=== PATIENT | female | born 1965 ===

== ENCOUNTER 2016-08-20 10:59 | Emergency (ER) | payer MEDICARE ==
[2016-08-20 11:09] VITALS: BP 143/87; PULSE 65; TEMP 97; O2SAT 99
[2016-08-20 11:10] VITALS: BMI 25.0
--- NOTE | 2016-08-20 11:39 | ED PDOC ---
HPI: General Adult Time Seen by Provider: 08/20/16 11:38 Chief Complaint (Nursing): Cough, Cold, Congestion Chief Complaint (Provider): cough History Per: Patient Additional Complaint(s): Patient states she has had cough, headache and body aches for the past 3 days with no known fever. Patient denies any chest pain or SOB. She has not taken any meds for relief of symptoms. Patient is tolerating liquids and solids, she denies any recent travel or known sick contacts. Patient also has headache and slight abdominal pain. No nausea, vomiting, diarrhea or constipation, no dysuria or hematuria. Patient states she has history of frequent headaches. Past Medical History Reviewed: Historical Data, Nursing Documentation, Vital Signs Vital Signs: Last Vital Signs Temp 97 F L 08/20/16 11:08 Pulse 65 08/20/16 11:08 Resp BP 143/87 08/20/16 11:08 Pulse Ox 99 08/20/16 12:39 - Medical History PMH: Anxiety, Arthritis, Back Problems (Osteomyelitis T9/T10), Depression, Diabetes (type II), Gastritis, HTN, Hypercholesterolemia, Hypothyroidism, Malignancy (Thyroid) Other PMH: hard of hearing - Surgical History Surgical History: Endoscopy Other surgeries: thyroidectomy - Family History Family History: States: No Known Family Hx - Living Arrangements Living Arrangements: With Family - Social History Current smoker - smoking cessation education provided: No Alcohol: None Drugs: Denies - Immunization History Hx Tetanus Toxoid Vaccination: No Hx Influenza Vaccination: Yes Hx Pneumococcal Vaccination: No - Home Medications Home Medications: Ambulatory Orders Medication Instructions Recorded Levothyroxine [Synthroid] 125 mcg PO DAILY@0630 09/26/14 Calcitriol [Rocaltrol] 0.5 mcg PO DAILY 09/04/15 Simvastatin [Zocor] 20 mg PO HS 09/04/15 metFORMIN [glucOPHAGE] 500 mg PO BID 09/04/15 Ibuprofen [Motrin Tab] 600 mg PO Q6 #20 tab 12/19/15 Pantoprazole [Protonix EC Tab] 40 mg PO BID #0 ect 02/11/16 Ranitidine HCl 150 mg PO HS #30 tablet 02/11/16 Calcium Carbonate/Vitamin D3 1 tab PO DAILY 08/03/16 [Calcium 600 + Vit D Tablet] Ciprofloxacin [Cipro] 500 mg PO BID 08/03/16 Lisinopril 2.5 mg PO DAILY 08/03/16 Oxycodone HCl/Acetaminophen 1 tab PO Q6 PRN 08/03/16 [Oxycodone-Acetaminophen 5-325] Azithromycin [Zithromax] 250 mg PO DAILY #6 tab 08/20/16 Benzonatate 200 mg PO TID PRN #20 capsule 08/20/16 Ibuprofen [Motrin] 600 mg PO Q6 PRN #15 tab 08/20/16 - Allergies Allergies/Adverse Reactions: Allergies Allergy/AdvReac Type Severity Reaction Status Date / Time Penicillins Allergy RASH Verified 08/20/16 11:47 Review of Systems ROS Statement: Except As Marked, All Systems Reviewed And Found Negative Constitutional: Negative for: Fever ENT: Positive for: Throat Pain Cardiovascular: Negative for: Chest Pain Respiratory: Positive for: Cough Gastrointestinal: Negative for: Vomiting Neurological: Positive for: Headache Physical Exam - Reviewed Nursing Documentation Reviewed: Yes Vital Signs Reviewed: Yes - Physical Exam Appears: Positive for: Well, Non-toxic, No Acute Distress Skin: Negative for: Rash Eye Exam: Positive for: Normal appearance, EOMI, PERRL ENT: Positive for: Pharyngeal Erythema. Negative for: Nasal Congestion Cardiovascular/Chest: Positive for: Regular Rate, Rhythm Respiratory: Positive for: Normal Breath Sounds Gastrointestinal/Abdominal: Positive for: Soft. Negative for: Tenderness, Distended, Guarding, Rebound Extremity: Negative for: Pedal Edema Neurologic/Psych: Positive for: Alert, Oriented - ECG O2 Sat by Pulse Oximetry: 99 Pulse Ox Interpretation: Normal - Other Rad CXR X-Ray: Interpreted by Me, Viewed By Me X-Ray Interpretation: no acute finding Medical Decision Making Medical Decision Makin51 year old with cough and body aches Plan: Flu swab CXR PO motrin Urine dip Will d/c with rx zithromax, tessalon perles and motrin. Advised fluids, rest and follow up with PMD in 1-2 days. Disposition - Clinical Impression Clinical Impression: Bronchitis - Patient ED Disposition Is Patient to be Admitted: No Counseled Patient/Family Regarding: Studies Performed, Diagnosis, Need For Followup, Rx Given - Disposition [facility] Disposition: Routine/Home Disposition Time: 13:16 Condition: STABLE Additional Instructions: Take rx meds as directed. Follow up with clinic. Prescriptions: Azithromycin [Zithromax] 250 mg PO DAILY #6 tab Benzonatate 200 mg PO TID PRN #20 capsule PRN Reason: Cough Ibuprofen [Motrin] 600 mg PO Q6 PRN #15 tab PRN Reason: Pain, Moderate (4-7) Instructions: Acute Bronchitis (ED) Print Language: HUNGARIAN
--- NOTE | 2016-08-20 12:37 | RAD ---
HISTORY: cough COMPARISON: Comparison is made to the previous study dated 05/20/2016 TECHNIQUE: Chest PA and lateral FINDINGS: LUNGS: No active pulmonary disease. PLEURA: No significant pleural effusion identified. No pneumothorax apparent. CARDIOVASCULAR: Normal. OSSEOUS STRUCTURES: No significant abnormalities. VISUALIZED UPPER ABDOMEN: Normal. OTHER FINDINGS: None. IMPRESSION: No active disease.
== END 2016-08-20 13:28 | disposition home or self-care (01) ==
LOC: H.ER 10:59
DX: J40 Bronchitis, not specified as acute or chronic (principal); R51 Headache; E03.9 Hypothyroidism, unspecified; E11.9 Type 2 diabetes mellitus without complications; E78.00 Pure hypercholesterolemia, unspecified; F41.9 Anxiety disorder, unspecified; I10 Essential (primary) hypertension; Z79.84 Long term (current) use of oral hypoglycemic drugs; Z88.0 Allergy status to penicillin

== ENCOUNTER 2016-08-24 12:46 | Emergency (ER) | payer MEDICARE ==
[2016-08-24 12:46] VITALS: BMI 25.0
[2016-08-24 12:54] VITALS: BP 145/77; PULSE 59; RESP 19; TEMP 98.1; O2SAT 99
--- NOTE | 2016-08-24 14:12 | ED PDOC ---
HPI: Psych/Substance Abuse Time Seen by Provider: 08/24/16 12:56 Chief Complaint (Nursing): Psychiatric Evaluation Chief Complaint (Provider): Psychiatric Evaluation History Per: Patient History/Exam Limitations: no limitations Onset/Duration Of Symptoms: Days Current Symptoms Are (Timing): Still Present Additional Complaint(s): 51 y/o female with a past medical history of depression, hypothyroid disease, thyroid cancer, diabetes, and hypercholesterolemia presents to the emergency department after sent from the clinic as she expressed feeling depression for the past several of months. Reports her son lost custody of her grandson. Admits getting suicidal ideation but usually takes a walk until she no longer has those thoughts. Denies taking medications and current suicidal or homicidal ideation/ hallucination. 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 Past Medical History Reviewed: Historical Data, Nursing Documentation, Vital Signs Vital Signs: Last Vital Signs Temp 98.1 F 08/24/16 12:49 Pulse 59 L 08/24/16 12:49 Resp 19 08/24/16 12:49 BP 145/77 08/24/16 12:49 Pulse Ox 99 08/24/16 12:49 - Medical History PMH: Anxiety, Arthritis, Back Problems (Osteomyelitis T9/T10), Depression, Diabetes (type II), Gastritis, HTN, Hypercholesterolemia, Hypothyroidism, Kidney Stones, Malignancy (Thyroid), Chronic Kidney Disease - Surgical History Surgical History: Endoscopy - Family History Family History: States: Unknown Family Hx - Social History Current smoker - smoking cessation education provided: No Alcohol: None Drugs: Denies - Immunization History Hx Tetanus Toxoid Vaccination: No Hx Influenza Vaccination: Yes Hx Pneumococcal Vaccination: No - Home Medications Home Medications: Ambulatory Orders Medication Instructions Recorded Levothyroxine [Synthroid] 125 mcg PO DAILY@0630 09/26/14 Simvastatin [Zocor] 20 mg PO HS 09/04/15 metFORMIN [glucOPHAGE] 500 mg PO BID 09/04/15 Lisinopril 10 mg PO DAILY 08/03/16 Aspirin [Aspirin Chewable] 81 mg PO DAILY 08/24/16 Clindamycin [Cleocin] 300 mg PO TID 08/24/16 Famotidine/Ca Carb/Mag Hydrox 1 tab PO BID PRN 08/24/16 [Pepcid Complete Tablet Chew] Ibuprofen [Motrin Tab] 400 mg PO Q6 PRN 08/24/16 - Allergies Allergies/Adverse Reactions: Allergies Allergy/AdvReac Type Severity Reaction Status Date / Time Penicillins Allergy RASH Verified 08/24/16 14:55 Review of Systems ROS Statement: Except As Marked, All Systems Reviewed And Found Negative Psych: Positive for: Depression. Negative for: Suicidal ideation (or homicidal ideation/hallucination) Physical Exam - Reviewed Nursing Documentation Reviewed: Yes Vital Signs Reviewed: Yes - Physical Exam Appears: Positive for: Non-toxic, No Acute Distress Head Exam: Positive for: ATRAUMATIC, NORMOCEPHALIC Neurologic/Psych: Positive for: Alert, Oriented. Negative for: Other (no suicidal or homicidal ideation/ hallucination) - ECG O2 Sat by Pulse Oximetry: 99 (RA) Pulse Ox Interpretation: Normal - Progress ED Course And Treament: Pt. evaluated by [facility] crisis screener, who arranged an outpatient appointment for patient on 08/27/2016. Medical Decision Making Medical Decision Making: Time: 12:56 Initial plan: --Crisis Evaluation --1:1 Obs for suicide Precaution --Revaluation Scribe Attestation: Documented by Dari Edmonds, acting as a scribe for Lobo Gonsalez PA-C. Provider Scribe Attestation: All medical record entries made by the Scribe were at my direction and personally dictated by me. I have reviewed the chart and agree that the record accurately reflects my personal performance of the history, physical exam, medical decision making, and the department course for this patient. I have also personally directed, reviewed, and agree with the discharge instructions and disposition. Disposition - Clinical Impression Clinical Impression: Depression - Patient ED Disposition Is Patient to be Admitted: No - Disposition Disposition: Routine/Home Disposition Time: 17:12 Condition: STABLE Additional Instructions: FOLLOW UP WITH [facility] ON 08/27/2016 AT 10:30AM. [address] [phone] Instructions: Depression (ED) Print Language: TURKISH
== END 2016-08-24 18:03 | disposition home or self-care (01) ==
LOC: H.ER 12:46
DX: F32.9 Major depressive disorder, single episode, unspecified (principal); E03.9 Hypothyroidism, unspecified; E11.9 Type 2 diabetes mellitus without complications; E78.00 Pure hypercholesterolemia, unspecified; F41.9 Anxiety disorder, unspecified; I12.9 Hypertensive chronic kidney disease with stage 1 through stage 4 chronic kidney disease, or unspecified chronic kidney disease; Z79.82 Long term (current) use of aspirin; Z79.84 Long term (current) use of oral hypoglycemic drugs; Z88.0 Allergy status to penicillin

== ENCOUNTER 2017-06-08 07:55 | Day surgery (SDC) | payer MEDICARE ==
[2017-06-08] MEDS ORDERED: Lactated Ringer's 1,000 ML IV ONE (08:36)
[2017-06-08 08:51] VITALS: BMI 26.6
[2017-06-08] MEDS ORDERED: Lidocaine PF 2% (5 ml) Inj (For Cardiac Arrhy) IV ONE (10:05)
[2017-06-08] MEDS ORDERED: Propofol 10 mg/ml Inj (20 ML) ONE (10:05)
[2017-06-08 10:44] VITALS: O2SAT 100
[2017-06-08 10:54] VITALS: BP 98/53; PULSE 59; RESP 19; TEMP 97
== END 2017-06-08 11:20 | disposition home or self-care (01) ==
LOC: H.ENDO 07:55
PROVIDERS: ATTEND Internal Medicine Gastroenterology
DX: Z12.11 Encounter for screening for malignant neoplasm of colon (principal); E11.9 Type 2 diabetes mellitus without complications; E78.5 Hyperlipidemia, unspecified; I10 Essential (primary) hypertension; E03.9 Hypothyroidism, unspecified; K57.30 Diverticulosis of large intestine without perforation or abscess without bleeding; K64.8 Other hemorrhoids; K29.50 Unspecified chronic gastritis without bleeding; K21.9 Gastro-esophageal reflux disease without esophagitis; R10.13 Epigastric pain; K44.9 Diaphragmatic hernia without obstruction or gangrene
CPT/HCPCS: 43239; 45378; 82948; 88305; J2704; J7120

== ENCOUNTER 2017-12-12 15:07 | Emergency (ER) | payer MEDICARE ==
[2017-12-12 15:07] VITALS: BMI 26.6
[2017-12-12 15:17] VITALS: BP 122/84; PULSE 72; RESP 18; TEMP 98.4; O2SAT 99
--- NOTE | 2017-12-12 15:18 | ED PDOC ---
Lower Extremity Pain/Injury Time Seen by Provider: 12/12/17 15:17 Chief Complaint (Nursing): Lower Extremity Problem/Injury Chief Complaint (Provider): heel pain History Per: Patient, Rubber Turner (Benita Ramos RN at bedside for Indonesian Translation) Additional Complaint(s): 52 y/o female presents with pain to left heel for 1 week. Patient denies trauma or injury. Tylenol has not provided pain relief. Pain is worse when she is walking, better when she is resting and not bearing weight. No fever or chills. PMD: [facility] Past Medical History Reviewed: Historical Data, Nursing Documentation, Vital Signs Vital Signs: Last Vital Signs Temp 98.4 F 12/12/17 15:14 Pulse 72 12/12/17 15:14 Resp 18 12/12/17 15:14 BP 122/84 12/12/17 15:14 Pulse Ox 99 12/12/17 15:14 - Medical History PMH: Anxiety, Arthritis, Back Problems (Osteomyelitis T9/T10), Depression, Diabetes (type II), Gastritis, HTN, Hypercholesterolemia, Hypothyroidism, Kidney Stones, Malignancy (Thyroid) - Surgical History Surgical History: Endoscopy Other surgeries: Bilateral ear surgery, thyroidectomy - Family History Family History: States: No Known Family Hx - Living Arrangements Living Arrangements: With Family - Social History Current smoker - smoking cessation education provided: No Ex-Smoker (has not smoked in the last 12 months): Yes (quit 6 years ago) Alcohol: None Drugs: Denies - Home Medications Home Medications: Ambulatory Orders Medication Instructions Recorded Atorvastatin [Lipitor] 20 mg PO DAILY 06/08/17 Calcitriol [Rocaltrol] 0.5 mcg PO DAILY 06/08/17 Levothyroxine [Synthroid] 100 mcg PO DAILY 06/08/17 Losartan [Cozaar] 25 mg PO DAILY 06/08/17 metFORMIN [glucOPHAGE] 500 mg PO BID 06/08/17 Ibuprofen [Motrin Tab] 800 mg PO Q8 PRN #20 tab 12/12/17 - Allergies Allergies/Adverse Reactions: Allergies Allergy/AdvReac Type Severity Reaction Status Date / Time Penicillins Allergy RASH Verified 01/02/17 16:08 Wells Criteria for PE - Wells Criteria for Pulmonary Embolism Clinical Signs and Symptoms of DVT: No P.E is #1 Diagnosis, or Equally Likely: No Heart Rate >100: No Immobilization at least 3 days;Surgery previous 4 weeks: No Previous, objectively diagnosed PE or DVT: No Hemoptysis: No Malignancy w/treatment within 6 months, or palliative: No Total Score: 0 Review of Systems ROS Statement: Except As Marked, All Systems Reviewed And Found Negative Constitutional: Negative for: Fever Musculoskeletal: Positive for: Foot Pain (left foot pain for 1 week) Physical Exam - Reviewed Nursing Documentation Reviewed: Yes Vital Signs Reviewed: Yes - Physical Exam Appears: Positive for: Well, Non-toxic, No Acute Distress Skin: Positive for: Normal Color. Negative for: Rash Eye Exam: Positive for: Normal appearance Extremity: Positive for: Other (Tenderness to calcaneal region of left foot, no erythema or ecchymosis noted) Neurologic/Psych: Positive for: Alert, Oriented - ECG O2 Sat by Pulse Oximetry: 99 Pulse Ox Interpretation: Normal - Other Rad Left foot x-ray X-Ray: Interpreted by Me, Viewed By Me X-Ray Interpretation: no fx, no dis, heel spur Medical Decision Making Medical Decision Makin-year-old female with left foot pain Plan: PO motrin X-ray left foot Patient is aware of x-ray results. All questions answered. See procedure note. Prescription for Motrin provided. Patient was referred to podiatry clinic for follow-up. Crutches declined. Procedures - Splinting Location: left foot Pre-Made Type: yanira wrap, ortho shoe Pre-Proc Neuro Vasc Exam: normal Post-Proc Neuro Vasc Exam: normal Disposition - Clinical Impression Clinical Impression: Heel spur - Patient ED Disposition Is Patient to be Admitted: No Counseled Patient/Family Regarding: Studies Performed, Diagnosis, Need For Followup, Rx Given - Disposition Referrals: Podiatry Clinic [Outside] Disposition: Routine/Home Disposition Time: 17:09 Condition: STABLE Additional Instructions: Ice, rest and elevate affected area. Take prescription meds as directed as needed for pain. Follow-up in 2-3 days with podiatry clinic. Prescriptions: Ibuprofen [Motrin Tab] 800 mg PO Q8 PRN #20 tab PRN Reason: Pain, Moderate (4-7) Instructions: Heel Spurs Forms: [email or web address] (Indonesian) Print Language: SOMALI
--- NOTE | 2017-12-12 16:39 | RAD ---
Date of service: The the 12/12/2017 PROCEDURE: Left Foot Radiographs. HISTORY: attn heel COMPARISON: None. FINDINGS: BONES: No evidence of acute displaced fracture nor dislocation. Tiny plantar and posterior calcaneal enthesophyte formation. JOINTS: There appears to be mild hammertoe deformities of the 2nd through 5th digits. SOFT TISSUES: Normal. OTHER FINDINGS: None. IMPRESSION: No evidence of acute displaced fracture nor dislocation.
== END 2017-12-12 17:33 | disposition home or self-care (01) ==
LOC: H.ER 15:07
DX: M77.32 Calcaneal spur, left foot (principal); E11.9 Type 2 diabetes mellitus without complications; Z79.84 Long term (current) use of oral hypoglycemic drugs; Z88.0 Allergy status to penicillin

== ENCOUNTER 2018-01-08 10:31 | Emergency (ER) | payer MEDICARE ==
[2018-01-08 10:35] VITALS: BMI 27.8
[2018-01-08] MEDS ORDERED: Sodium Chloride 0.9% 1,000 ML IV STA (10:57)
--- NOTE | 2018-01-08 11:02 | ED PDOC ---
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 Patient did not take any pain medication due to nausea. She states she had the same pain in the past but it was not as strong. She denies fever, neck stiffness or visual changes. PMD: Unknown Past Medical History Reviewed: Historical Data, Nursing Documentation, Vital Signs Vital Signs: Last Vital Signs Temp 97.8 F 01/08/18 10:33 Pulse 78 01/08/18 10:33 Resp 18 01/08/18 10:33 BP 159/98 H 01/08/18 10:33 Pulse Ox 100 01/08/18 10:33 - Medical History PMH: Anxiety, Arthritis, Back Problems (Osteomyelitis T9/T10), Depression, Diabetes (type II), Gastritis, HTN, Hypercholesterolemia, Hypothyroidism, Kidney Stones, Malignancy (Thyroid), Chronic Kidney Disease Denies: Hepatitis, HIV, Seizures, Sexually Transmitted Disease - Surgical History Surgical History: Endoscopy - Family History Family History: States: Unknown Family Hx - Social History Current smoker - smoking cessation education provided: No Alcohol: None Drugs: Denies - Immunization History Hx Tetanus Toxoid Vaccination: No Hx Influenza Vaccination: Yes Hx Pneumococcal Vaccination: No - Home Medications Home Medications: Ambulatory Orders Medication Instructions Recorded Atorvastatin [Lipitor] 20 mg PO DAILY 06/08/17 Calcitriol [Rocaltrol] 0.5 mcg PO DAILY 06/08/17 Levothyroxine [Synthroid] 100 mcg PO DAILY 06/08/17 Losartan [Cozaar] 25 mg PO DAILY 06/08/17 metFORMIN [glucOPHAGE] 500 mg PO BID 06/08/17 Ibuprofen [Motrin Tab] 800 mg PO Q8 PRN #20 tab 12/12/17 Ondansetron ODT [Zofran ODT] 4 mg PO Q8H PRN #20 odt 01/08/18 oxyCODONE/Acetaminophen [Percocet 1 tab PO Q6H PRN #15 tab 01/08/18 5/325 mg Tab] - Allergies Allergies/Adverse Reactions: Allergies Allergy/AdvReac Type Severity Reaction Status Date / Time Penicillins Allergy RASH Verified 01/08/18 10:51 Review of Systems ROS Statement: Except As Marked, All Systems Reviewed And Found Negative Constitutional: Positive for: Chills. Negative for: Fever Eyes: Negative for: Vision Change Gastrointestinal: Positive for: Nausea, Vomiting Musculoskeletal: Negative for: Neck Pain Neurological: Positive for: Headache Psych: Negative for: Suicidal ideation (homicidal ideation) Physical Exam - Reviewed Nursing Documentation Reviewed: Yes Vital Signs Reviewed: Yes - Physical Exam Appears: Negative for: No Acute Distress (moderate painful distress) Head Exam: Positive for: ATRAUMATIC, NORMAL INSPECTION, NORMOCEPHALIC Skin: Positive for: Normal Color, Warm, Dry. Negative for: Rash Eye Exam: Positive for: EOMI, Normal appearance, PERRL ENT: Positive for: Normal ENT Inspection Neck: Positive for: Normal, Painless ROM, Supple. Negative for: Decreased ROM Cardiovascular/Chest: Positive for: Regular Rate, Rhythm. Negative for: Murmur Respiratory: Positive for: Normal Breath Sounds. Negative for: Decreased Breath Sounds, Wheezing, Respiratory Distress Gastrointestinal/Abdominal: Positive for: Normal Exam, Soft. Negative for: Tenderness, Guarding, Rebound Back: Positive for: Normal Inspection. Negative for: L CVA Tenderness, R CVA Tenderness Extremity: Positive for: Normal ROM. Negative for: Tenderness, Pedal Edema, Deformity Neurologic/Psych: Positive for: Alert, Oriented (x3). Negative for: Motor/ Sensory Deficits - Laboratory Results Result Diagrams: 01/08/18 11:32 01/08/18 11:11 - ECG O2 Sat by Pulse Oximetry: 100 (RA) Pulse Ox Interpretation: Normal - Progress Condition: Improved Medical Decision Making Medical Decision Making: Time: 1057 Initial Plan: --Head w/o Contrast CT --CMP --TSH --ED Urine --ED Urine Dipstick --Morphine 2mg --Normal Saline 1000 mls/hr --Zofran 4mg --Glucose, Blood, POC --Urinalysis --Reevaluation Time: 1306 PROCEDURE: CT HEAD WITHOUT CONTRAST. HISTORY: ARGUELLES COMPARISON: None available. TECHNIQUE: Axial computed tomography images were obtained through the head/brain without intravenous contrast. Radiation dose: Total exam DLP = mGy-cm. This CT exam was performed using one or more of the following dose reduction techniques: Automated exposure control, adjustment of the mA and/or kV according to patient size, and/or use of iterative reconstruction technique. FINDINGS: HEMORRHAGE: No intracranial hemorrhage. BRAIN: No mass effect or edema. No atrophy or chronic microvascular ischemic changes. VENTRICLES: Unremarkable. No hydrocephalus. CALVARIUM: Unremarkable. PARANASAL SINUSES: Unremarkable as visualized. No significant inflammatory changes. MASTOID AIR CELLS: Unremarkable as visualized. No inflammatory changes. OTHER FINDINGS: Limited by streak artifact. IMPRESSION: Normal CT of the Head. Scribe Attestation: Documented by Magan Denise, acting as a scribe for Zuleima Zaidi MD Provider Scribe Attestation: All medical record entries made by the Scribe were at my direction and personally dictated by me. I have reviewed the chart and agree that the record accurately reflects my personal performance of the history, physical exam, medical decision making, and the department course for this patient. I have also personally directed, reviewed, and agree with the discharge instructions and disposition. Disposition - Clinical Impression Clinical Impression: Headache - Disposition Referrals: [facility] [Outside] Disposition: Routine/Home Disposition Time: 13:45 Condition: IMPROVED Prescriptions: Ondansetron ODT [Zofran ODT] 4 mg PO Q8H PRN #20 odt PRN Reason: Nausea/Vomiting oxyCODONE/Acetaminophen [Percocet 5/325 mg Tab] 1 tab PO Q6H PRN #15 tab PRN Reason: Pain, Severe (8-10) Instructions: Headache, Adult Forms: [email or web address] (Kinyarwanda) Print Language: MOHAWK
[2018-01-08 11:33] LABS: ALB/GLOB RATIO 1.3 (1.0-2.1); ALBUMIN 5.1 g/dL (3.5-5.0); BLOOD UREA NITROGEN 14 mg/dl (7-17); CALCIUM 10.4 mg/dL (8.4-10.2); GFR NON-AFRICAN AMERICAN > 60
[2018-01-08 11:36] LABS: BASO % 0.5 % (0.0-2.0); EOS % 0.3 % (0.0-4.0); HEMOGLOBIN 13.6 g/dL (12.0-16.0); LYMPH # 1.6 K/uL (1.0-4.3); MEAN CELL VOLUME 92.5 fl (81.0-99.0); MEAN CORPUSCULAR HEMOGLOBIN 31.8 pg (27.0-31.0); MEAN CORPUSCULAR HGB CONC 34.4 g/dL (33.0-37.0); MEAN PLATELET VOLUME 8.3 fl (7.2-11.7); MONO # 0.4 K/uL (0.0-0.8); MONO % 5.5 % (0.0-10.0); NEUT # 5.6 K/uL (1.8-7.0); NEUT % 72.7 % (50.0-75.0); RBC 4.26 Mil/uL (3.80-5.20); RED CELL DISTRIBUTION WIDTH 13.7 % (11.5-14.5); WHITE BLOOD COUNT 7.8 K/uL (4.8-10.8)
[2018-01-08 11:56] LABS: SQUAMOUS EPITHIAL 3 /hpf (0-5); URINE BACTERIA OCC (<OCC); URINE BILIRUBIN NEGATIVE (NEGATIVE); URINE BLOOD SMALL (NEGATIVE); URINE CALCIUM OXALATE CRYSTALS FEW /hpf (<OCC); URINE CLARITY SLIGHTY-CLOUDY (Clear); URINE COLOR AMBER (YELLOW); URINE GLUCOSE (UA) NEG (Normal); URINE LEUKOCYTE ESTERASE NEG Leu/uL (Negative); URINE PROTEIN 100 mg/dL (NEGATIVE); URINE UROBILINOGEN 0.2-1.0 mg/dL (0.2-1.0)
[2018-01-08 11:56] LABS: ALT/SGPT 27 U/L (9-52); AST/SGOT 41 U/L (14-36)
--- NOTE | 2018-01-08 13:08 | CT ---
Date of service: 01/08/2018 PROCEDURE: CT HEAD WITHOUT CONTRAST. HISTORY: ARGUELLES COMPARISON: None available. TECHNIQUE: Axial computed tomography images were obtained through the head/brain without intravenous contrast. Radiation dose: Total exam DLP = mGy-cm. This CT exam was performed using one or more of the following dose reduction techniques: Automated exposure control, adjustment of the mA and/or kV according to patient size, and/or use of iterative reconstruction technique. FINDINGS: HEMORRHAGE: No intracranial hemorrhage. BRAIN: No mass effect or edema. No atrophy or chronic microvascular ischemic changes. VENTRICLES: Unremarkable. No hydrocephalus. CALVARIUM: Unremarkable. PARANASAL SINUSES: Unremarkable as visualized. No significant inflammatory changes. MASTOID AIR CELLS: Unremarkable as visualized. No inflammatory changes. OTHER FINDINGS: Limited by streak artifact. IMPRESSION: Normal CT of the Head.
[2018-01-08 14:08] VITALS: BP 114/75; PULSE 66; RESP 15; TEMP 98.3
[2018-01-09 11:45] VITALS: O2SAT 100
== END 2018-01-08 14:07 | disposition home or self-care (01) ==
LOC: H.ER 10:31
DX: R51 Headache (principal); E11.22 Type 2 diabetes mellitus with diabetic chronic kidney disease; E03.9 Hypothyroidism, unspecified; Z86.59 Personal history of other mental and behavioral disorders; N18.9 Chronic kidney disease, unspecified; I10 Essential (primary) hypertension; Z79.84 Long term (current) use of oral hypoglycemic drugs; Z87.442 Personal history of urinary calculi; Z88.0 Allergy status to penicillin
CPT/HCPCS: 70450; 80053; 81003; 81025; 82948; 84443; 85025; 96360; 99284; J2270; J2405; J7030

== ENCOUNTER 2018-09-07 09:49 | Emergency (ER) | payer MEDICARE ==
[2018-09-07 09:59] VITALS: BMI 27.4
[2018-09-07] MEDS ORDERED: Naproxen 500 MG TAB PO STA (11:33)
--- NOTE | 2018-09-07 11:38 | ED PDOC ---
Lower Extremity Pain/Injury Additional Complaint(s): CC: Left knee pain HPI: 53 year old female with PMHx DMII, HTN, HLD and hypothyroidism presents to [facility] ED with complaints of atraumatic left knee pain x 3 days. Patient reports pain is worse with ambulating and when getting up from sitting position. Reports hx fall on left knee about 2 years ago. Denies any recent trauma. Denies knee swelling or skin erythema. Denies fever, chills or dizziness. Patient took ibuprofen 200 mg two nights ago with mild relief. Patient uses cane at home. PMD: [facility] PMHx:HTN, HLD,T2DM, Hypothyroidism PSx: total thyroidectomy. (2015) SHx :denied smoke, drugs Etoh ,lives with son Allergies: [facility] <Sultan Ronald - Last Filed: 09/07/18 11:52> <Luis Graves - Last Filed: 09/07/18 13:03> Time Seen by Provider: 09/07/18 10:02 Chief Complaint (Nursing): Lower Extremity Problem/Injury Past Medical History Vital Signs: Last Vital Signs Temp 98.1 F 09/07/18 09:58 Pulse 65 09/07/18 09:58 Resp 14 09/07/18 09:58 BP 112/65 09/07/18 09:58 Pulse Ox 98 09/07/18 09:58 Primary Care Provider: FAMILY PROVIDER,NO - Medical History PMH: Anxiety, Arthritis, Back Problems (Osteomyelitis T9/T10), Depression, Diabetes (type II), Gastritis, HTN, Hypercholesterolemia, Hypothyroidism, Kidney Stones, Malignancy (Thyroid), Chronic Kidney Disease Denies: Hepatitis, HIV, Seizures, Sexually Transmitted Disease - Surgical History Surgical History: Endoscopy - Family History Family History: States: Unknown Family Hx - Immunization History Hx Tetanus Toxoid Vaccination: No Hx Influenza Vaccination: Yes Hx Pneumococcal Vaccination: No <Sultan Ronald - Last Filed: 09/07/18 11:52> Vital Signs: Last Vital Signs Temp 98.1 F 09/07/18 09:58 Pulse 65 09/07/18 09:58 Resp 14 09/07/18 09:58 BP 112/65 09/07/18 09:58 Pulse Ox 98 09/07/18 11:58 <Luis Graves - Last Filed: 09/07/18 13:03> - Home Medications Home Medications: Ambulatory Orders Medication Instructions Recorded Atorvastatin [Lipitor] 20 mg PO DAILY 06/08/17 Calcitriol [Rocaltrol] 0.5 mcg PO DAILY 06/08/17 Levothyroxine [Synthroid] 100 mcg PO DAILY 06/08/17 Losartan [Cozaar] 25 mg PO DAILY 06/08/17 metFORMIN [glucOPHAGE] 500 mg PO BID 06/08/17 Ibuprofen [Motrin Tab] 800 mg PO Q8 PRN #20 tab 12/12/17 Ondansetron ODT [Zofran ODT] 4 mg PO Q8H PRN #20 odt 01/08/18 oxyCODONE/Acetaminophen [Percocet 1 tab PO Q6H PRN #15 tab 01/08/18 5/325 mg Tab] Naproxen [Naprosyn] 500 mg PO Q12H #20 tab 09/07/18 - Allergies Allergies/Adverse Reactions: Allergies Allergy/AdvReac Type Severity Reaction Status Date / Time Penicillins Allergy RASH Verified 01/08/18 10:51 Review of Systems Constitutional: Negative for: Fever, Chills Cardiovascular: Negative for: Chest Pain, Palpitations Respiratory: Negative for: Cough, Shortness of Breath Gastrointestinal: Negative for: Abdominal Pain Genitourinary Female: Negative for: Dysuria, Hematuria Musculoskeletal: Positive for: Other (Left knee pain) Neurological: Negative for: Weakness, Numbness, Dizziness <Sultan Ronald - Last Filed: 09/07/18 11:52> Physical Exam - Physical Exam Appears: Positive for: Well, Non-toxic, No Acute Distress Head Exam: Positive for: ATRAUMATIC, NORMOCEPHALIC Skin: Positive for: Normal Color Cardiovascular/Chest: Positive for: Regular Rate, Rhythm Respiratory: Positive for: Normal Breath Sounds. Negative for: Wheezing Gastrointestinal/Abdominal: Positive for: Bowel Sounds, Soft. Negative for: Tenderness Extremity: Positive for: Other (Mild tenderness at the medical aspects of left anterior knee with miminal effusion. No skin erythema. No posterior knee tenderness or swelling. Negative anterior and posterior drawer test. No calf tenderness. ). Negative for: Pedal Edema, Calf Tenderness <Sultan Ronald - Last Filed: 09/07/18 11:52> - ECG O2 Sat by Pulse Oximetry: 98 - Progress ED Course And Treament: 53 year old Female with PMHX DMII, HTN, Hypothyroid has acute on chronic left knee pain x 3 days. Plan: Naproxen 500 mg po once Left knee x-ray Re-evaluate Plan d/w with Dr. Graves <Sultan Ronald - Last Filed: 09/07/18 11:52> Disposition <Sultan Ronald - Last Filed: 09/07/18 11:52> - Patient ED Disposition Is Patient to be Admitted: No Counseled Patient/Family Regarding: Studies Performed, Diagnosis, Need For Followup, Rx Given - Disposition Disposition: Routine/Home Disposition Time: 13:02 <Luis Graves - Last Filed: 09/07/18 13:03> - Clinical Impression Clinical Impression: Knee pain, Arthritis - Disposition Referrals: Jasen Monae III, MD [Staff Provider] - Condition: FAIR Prescriptions: Naproxen [Naprosyn] 500 mg PO Q12H #20 tab Instructions: Osteoarthritis, Chronic Knee Pain Forms: [facility] (Eth[place]ian)
[2018-09-07] MEDS ORDERED: Naproxen 500 MG TAB PO ONE (12:02)
[2018-09-07 13:45] VITALS: BP 110/60; PULSE 76; RESP 16; TEMP 98.5; O2SAT 100
--- NOTE | 2018-09-07 15:02 | RAD ---
Date of service: 09/07/2018 PROCEDURE: Left Knee Radiographs. HISTORY: Pain. No history of recent/ related trauma provided. COMPARISON: None. TECHNIQUE: 2 views obtained. FINDINGS: BONES: Normal. No fracture. JOINTS: Normal. No osteoarthritis. JOINT EFFUSION: None. OTHER FINDINGS: None. IMPRESSION: Unremarkable radiographs of the left knee.
== END 2018-09-07 13:15 | disposition home or self-care (01) ==
LOC: H.ER 09:49
DX: I12.9 Hypertensive chronic kidney disease with stage 1 through stage 4 chronic kidney disease, or unspecified chronic kidney disease (principal); N18.9 Chronic kidney disease, unspecified; Z79.84 Long term (current) use of oral hypoglycemic drugs; Z87.442 Personal history of urinary calculi; Z88.0 Allergy status to penicillin; E03.9 Hypothyroidism, unspecified